=== PATIENT | male | born 2000 | race Caucasian/White ===

== ENCOUNTER 2025-04-19 15:28 | Emergency (ER) | payer OTHER ==
[~2025-04-19] VITALS: Ht 180.3 cm; Wt 105.0 kg
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
[2025-04-19] MEDS ORDERED: METH-1181 PO (17:47)
[2025-04-19] MEDS ORDERED: NAPR-746 PO (17:47)
[2025-04-19 17:59] VITALS: BP 142/77; PULSE 82; RESP 17; TEMP 98.7; O2SAT 100
== END 2025-04-19 18:01 | disposition home or self-care (01) ==
LOC: ER 15:28
DX: S13.4XXA Sprain of ligaments of cervical spine, initial encounter (principal); M25.511 Pain in right shoulder; G93.89 Other specified disorders of brain; Z88.0 Allergy status to penicillin; V89.2XXA Person injured in unspecified motor-vehicle accident, traffic, initial encounter; Y93.89 Activity, other specified; Y92.410 Unspecified street and highway as the place of occurrence of the external cause; Y99.8 Other external cause status
CPT/HCPCS: 70450; 73030